=== PATIENT | male | born 1990 | race Caucasian/White ===

== ENCOUNTER 2018-11-10 06:47 | Day surgery (SDC) | payer OTHER ==
[~2018-11-10] VITALS: Ht 185.4 cm; Wt 107.9 kg
--- NOTE | 2018-11-10 09:11 | NUR ---
11/10/18 0911 Gem Galvan BRUISE NOTED AT THE AREA OF THE PATELLA NOTED PRIOR TO PREP
== END 2018-11-10 10:55 | disposition home or self-care (01) ==
LOC: ORSCSDS 06:47
PROVIDERS: Orthopaedic Surgery
PROC: 0SCF4ZZ Extirpation of Matter from Right Ankle Joint, Percutaneous Endoscopic Approach (ICD-10-PCS; principal; 2018-11-10 08:30)
PROC: 0QBG4ZZ Excision of Right Tibia, Percutaneous Endoscopic Approach (ICD-10-PCS; principal; 2018-11-10 08:30)
DX: M24.071 Loose body in right ankle (principal); M67.271 Synovial hypertrophy, not elsewhere classified, right ankle and foot; M25.771 Osteophyte, right ankle
CPT/HCPCS: 88304; 88311; J0171; J0690; J1100; J1885; J2250; J2405; J2704; J2795; J3010; J7120